=== PATIENT | male | born 1990 | race Caucasian/White ===

== ENCOUNTER 2019-06-16 20:22 | Emergency (ER) | payer OTHER ==
[~2019-06-16] VITALS: Ht 188 cm; Wt 114.3 kg
[2019-06-16 20:37] VITALS: BP 132/80
[2019-06-16 21:00] VITALS: BP 132/80
== END 2019-06-16 21:00 | disposition home or self-care (01) ==
LOC: MED 20:22
DX: S60.222A Contusion of left hand, initial encounter (principal); X50.0XXA Overexertion from strenuous movement or load, initial encounter; Y93.89 Activity, other specified; Y92.89 Other specified places as the place of occurrence of the external cause; Y99.8 Other external cause status
CPT/HCPCS: 99281